=== PATIENT | female | born 1955 | race American Indian/Alaskan Native ===

== ENCOUNTER 2016-09-10 12:25 | Outpatient (CLI) | payer BC ==
[2016-09-10 12:46] LABS: Red Blood Count 4.63 M/mm3 (3.65-5.03); White Blood Count 7.7 K/mm3 (4.5-11.0)
[2016-09-10 12:47] LABS: Hematocrit 41.3 % (30.3-42.9); Hemoglobin 13.3 gm/dl (10.1-14.3); Mean Corpuscular HGB Conc 32 % (30-34); Mean Corpuscular Hemoglobin 29 pg (28-32); Mean Corpuscular Volume 89 fl (79-97); Platelet Count 351 K/mm3 (140-440); Red Cell Distribution Width 14.9 % (13.2-15.2)
[2016-09-10 13:23] LABS: Albumin 4.3 g/dL (3.9-5); Anion Gap 19 mmol/L; BUN/Creatinine Ratio 17.69; Blood Urea Nitrogen 23 mg/dL (7-17); Calcium 9.8 mg/dL (8.4-10.2); Carbon Dioxide 27 mmol/L (22-30); Chloride 100.4 mmol/L (98-107); Glucose 107 mg/dL (65-100); Phosphorous 3.7 mg/dL (2.5-4.5); Potassium 4.8 mmol/L (3.6-5.0); Sodium 142 mmol/L (137-145)
== END 2016-09-10 12:26 | disposition home or self-care (01) ==
LOC: LAB 12:25
PROVIDERS: ATTEND Internal Medicine
DX: C64.2 Malignant neoplasm of left kidney, except renal pelvis (principal); I10 Essential (primary) hypertension; R94.4 Abnormal results of kidney function studies; E55.9 Vitamin D deficiency, unspecified; E79.0 Hyperuricemia without signs of inflammatory arthritis and tophaceous disease
CPT/HCPCS: 36415; 80048; 82040; 82570; 84100; 84156; 85027

== ENCOUNTER 2016-09-16 09:59 | Outpatient (CLI) | payer BC ==
--- NOTE | 2016-09-16 12:40 | Magnetic Resonance Report ---
MRI ABDOMEN WITH AND WITHOUT CONTRAST MRI PELVIS WITH AND WITHOUT CONTRAST INDICATION: Malignant neoplasm of left kidney. COMPARISON: 08/31/2015 CT. FINDINGS: Multiplanar and multisequence MRI of the abdomen and pelvis performed utilizing 15 mL MultiHance intravenously. LUNG BASES again demonstrate normal heart size. Nonspecific distal esophageal wall thickening, not excluded for gastroesophageal reflux and/or hiatal hernia, amongst others. ABDOMEN: Left nephrectomy again noted with unremarkable surgical bed, occupied by small bowel. Few small right upper to mid renal cortical T2 hyperintensities/cysts measure up to 8 mm interpolar, axial series 4, image 30. No hydronephrosis on the right, though small nonobstructing right renal calculi or nephrocalcinosis on prior CT not well appreciated on MRI. Stable cholecystectomy. Liver, spleen, pancreas, adrenals, nonaneurysmal abdominal aorta and IVC remain within normal limits. No ascites or size significant adenopathy. Opacified bowel, marrow and muscle signal within normal limits. Normal appendix. PELVIS: Uterus again surgically absent. Small bilateral adnexal/ovarian follicular cysts again noted, measuring up to 1.4 cm on the left, axial image 25, series 4. Rectosigmoid stool. Unremarkable urinary bladder. No free fluid or size significant adenopathy. L4-L5 and L5-S1 disc degeneration with loss of signal noted. No focal suspicious abnormal enhancement. CONCLUSION: Left nephrectomy and cholecystectomy again noted with few other incidental findings, as above. Thank you for the opportunity to participate in this patient's care.
== END 2016-09-16 10:00 | disposition home or self-care (01) ==
LOC: MRI 09:59
PROVIDERS: ATTEND Urology
DX: C64.2 Malignant neoplasm of left kidney, except renal pelvis (principal); M51.36 Other intervertebral disc degeneration, lumbar region; Z90.5 Acquired absence of kidney; Z90.49 Acquired absence of other specified parts of digestive tract
CPT/HCPCS: 72197; 74183; A9577

== ENCOUNTER 2017-02-17 07:51 | Outpatient (CLI) | payer BC ==
--- NOTE | 2017-02-17 10:13 | Mammography Report ---
BILATERAL MAMMOGRAM: FINDINGS: The breast tissue is heterogeneously dense, which could obscure detection of small masses (approximately 50%-75% glandular). No mass, distortion, suspicious calcification, or skin change is seen. No significant change compared to prior exam in January 2015. CAD was utilized. IMPRESSION: Negative mammogram. There is no mammographic evidence of malignancy. RECOMMENDATION: Follow-up per ACS guidelines. BI-RADS CATEGORY: 1 = Negative ACR BI-RADS MAMMOGRAPHIC CODES: 0 = Needs additional imaging evaluation; 1 = Negative; 2 = Benign; 3 = Probably benign; 4 = Suspicious; 5 = Malignant; 6 = Known biopsy-proven malignancy COMMENT: 1. Dense breast tissue, i.e., adenosis, fibrocystic changes, etc., may obscure an underlying neoplasm. 2. Approximately 10% of cancers are not detected with mammography. 3. A negative mammography report should not delay biopsy if a clinically suspicious mass is present. COMMENT: Patient follow-up letters are generated in [employer].
== END 2017-02-17 07:52 | disposition home or self-care (01) ==
LOC: MAMMO 07:51
PROVIDERS: ATTEND Family Medicine
DX: Z12.31 Encounter for screening mammogram for malignant neoplasm of breast (principal)
CPT/HCPCS: 77067; G0202

== ENCOUNTER 2018-02-18 07:37 | Outpatient (CLI) | payer BC ==
--- NOTE | 2018-02-18 12:37 | Mammography Report ---
BILATERAL DIGITAL SCREENING MAMMOGRAM with CAD: 02/18/18 07:37:00 CLINICAL: Routine screening. COMPARISON:02/17/17 FINDINGS: The breasts are heterogeneously dense, which may obscure small masses. A right asymmetry with architectural distortion on the CC view requires additional imaging.No suspicious calcifications. The left breast is negative. IMPRESSION: Right asymmetry and architectural distortion requiring further workup. BI-RADS CATEGORY: 0 -- Additional Imaging Evaluation Required RECOMMENDATION: Recall for right lateralmedial and spot magnification CC views and right breast ultrasound if needed. ACR BI-RADS MAMMOGRAPHIC CODES: 0 = Needs additional imaging evaluation; 1 = Negative; 2 = Benign; 3 = Probably benign; 4 = Suspicious; 5 = Malignant; 6 = Known biopsy-proven malignancy COMMENT: 1. Dense breast tissue, i.e., adenosis, fibrocystic changes, etc., may obscure an underlying neoplasm. 2. Approximately 10% of cancers are not detected with mammography. 3. A negative mammography report should not delay biopsy if a clinically suspicious mass is present. COMMENT: Patient follow-up letters are generated via our [email or web address] application.
== END 2018-02-18 07:38 | disposition home or self-care (01) ==
LOC: MAMMO 07:37
PROVIDERS: ATTEND Family Medicine
DX: Z12.31 Encounter for screening mammogram for malignant neoplasm of breast (principal)
CPT/HCPCS: 77067

== ENCOUNTER 2018-04-30 16:18 | Outpatient (CLI) | payer BC ==
[2018-04-30 16:44] LABS: Basophils # (Auto) 0.1 K/mm3 (0.0-0.1); Basophils % (Auto) 0.9 % (0.0-1.8); Eosinophils # (Auto) 0.1 K/mm3 (0.0-0.4); Eosinophils % (Auto) 1.1 % (0.0-4.3); Hemoglobin 13.6 gm/dl (10.1-14.3); Lymphocytes # (Auto) 2.8 K/mm3 (1.2-5.4); Mean Corpuscular HGB Conc 33 % (30-34); Mean Corpuscular Hemoglobin 30 pg (28-32); Mean Corpuscular Volume 89 fl (79-97); Monocytes # (Auto) 0.7 K/mm3 (0.0-0.8); Monocytes % (Auto) 8.9 % (0.0-7.3); Platelet Count 376 K/mm3 (140-440); Red Cell Distribution Width 15.1 % (13.2-15.2)
[2018-04-30 17:08] LABS: Creatinine,Urine 47.1 mg/dL (0.1-20.0); Protein/Creatinine Ratio,Urine 0.11
[2018-04-30 17:13] LABS: Alanine Aminotransferase 16 units/L (7-56); BUN/Creatinine Ratio 13; Blood Urea Nitrogen 14 mg/dL (7-17); Calcium 9.6 mg/dL (8.4-10.2); Hemolysis Index 5
== END 2018-04-30 16:19 | disposition home or self-care (01) ==
LOC: LAB 16:18
PROVIDERS: ATTEND Internal Medicine
DX: R94.4 Abnormal results of kidney function studies (principal)
CPT/HCPCS: 36415; 80053; 82570; 84156; 85025

== ENCOUNTER 2018-12-09 09:26 | Outpatient (CLI) | payer BC ==
[2018-12-09 09:52] LABS: Hemoglobin 13.2 gm/dl (10.1-14.3); Mean Corpuscular HGB Conc 34 % (30-34); Mean Corpuscular Volume 89 fl (79-97); Platelet Count 333 K/mm3 (140-440); Red Blood Count 4.38 M/mm3 (3.65-5.03); Red Cell Distribution Width 15.3 % (13.2-15.2)
[2018-12-09 10:09] LABS: Alanine Aminotransferase 13 units/L (7-56); BUN/Creatinine Ratio 23; Blood Urea Nitrogen 23 mg/dL (7-17); Calcium 9.5 mg/dL (8.4-10.2); Hemolysis Index 8
[2018-12-09 13:22] LABS: Creatinine,Urine 23.3 mg/dL (0.1-20.0)
[2018-12-09 13:29] LABS: Protein/Creatinine Ratio,Urine 0.17
== END 2018-12-09 09:27 | disposition home or self-care (01) ==
LOC: LAB 09:26
PROVIDERS: ATTEND Internal Medicine
DX: R94.4 Abnormal results of kidney function studies (principal); E55.9 Vitamin D deficiency, unspecified; E79.0 Hyperuricemia without signs of inflammatory arthritis and tophaceous disease; E87.5 Hyperkalemia
CPT/HCPCS: 36415; 80053; 82570; 84156; 85027

== ENCOUNTER 2019-05-28 14:41 | Outpatient (CLI) | payer BC ==
[2019-05-28 15:05] LABS: Basophils # (Auto) 0.1 K/mm3 (0.0-0.1); Basophils % (Auto) 0.7 % (0.0-1.8); Eosinophils # (Auto) 0.1 K/mm3 (0.0-0.4); Eosinophils % (Auto) 0.9 % (0.0-4.3); Hemoglobin 13.1 gm/dl (10.1-14.3); Lymphocytes # (Auto) 2.6 K/mm3 (1.2-5.4); Mean Corpuscular HGB Conc 33 % (30-34); Mean Corpuscular Volume 90 fl (79-97); Monocytes # (Auto) 0.8 K/mm3 (0.0-0.8); Monocytes % (Auto) 9.7 % (0.0-7.3); Platelet Count 313 K/mm3 (140-440); Red Blood Count 4.42 M/mm3 (3.65-5.03); Red Cell Distribution Width 14.9 % (13.2-15.2)
[2019-05-28 15:32] LABS: Alanine Aminotransferase 14 units/L (7-56); Albumin 4.1 g/dL (3.9-5); BUN/Creatinine Ratio 14; Blood Urea Nitrogen 15 mg/dL (7-17); Calcium 9.4 mg/dL (8.4-10.2); Hemolysis Index 1
[2019-05-28 15:49] LABS: Creatinine,Urine 39.2 mg/dL (0.1-20.0)
== END 2019-05-28 14:42 | disposition home or self-care (01) ==
LOC: LAB 14:41
PROVIDERS: ATTEND Internal Medicine
DX: R94.4 Abnormal results of kidney function studies (principal)
CPT/HCPCS: 36415; 80053; 82570; 84156; 85025

== ENCOUNTER 2019-12-08 12:23 | Outpatient (CLI) | payer BC ==
[2019-12-08 12:43] LABS: Hemoglobin 13.9 gm/dl (10.1-14.3)
[2019-12-08 12:46] LABS: Hematocrit 41.8 % (30.3-42.9); Mean Corpuscular HGB Conc 33 % (30-34); Mean Corpuscular Volume 89 fl (79-97); Platelet Count 373 K/mm3 (140-440); Red Cell Distribution Width 15.2 % (13.2-15.2)
[2019-12-08 13:05] LABS: Alanine Aminotransferase 20 units/L (7-56); Albumin 4.2 g/dL (3.9-5); BUN/Creatinine Ratio 16; Blood Urea Nitrogen 16 mg/dL (7-17); Calcium 9.6 mg/dL (8.4-10.2); Hemolysis Index 10
[2019-12-08 14:27] LABS: Creatinine,Urine 23.1 mg/dL (0.1-20.0)
[2019-12-08 14:48] LABS: Protein/Creatinine Ratio,Urine 0.17
== END 2019-12-08 12:24 | disposition home or self-care (01) ==
LOC: LAB 12:23
PROVIDERS: ATTEND Internal Medicine
DX: C64.2 Malignant neoplasm of left kidney, except renal pelvis (principal); I10 Essential (primary) hypertension; E87.5 Hyperkalemia; R94.4 Abnormal results of kidney function studies; E55.9 Vitamin D deficiency, unspecified; E79.0 Hyperuricemia without signs of inflammatory arthritis and tophaceous disease
CPT/HCPCS: 36415; 80053; 82570; 84156; 85027

== ENCOUNTER 2020-05-19 11:09 | Outpatient (CLI) | payer BC ==
--- NOTE | 2020-05-19 12:51 | Mammography Report ---
DIGITAL SCREENING MAMMOGRAM WITH CAD, 05/19/2020 INDICATION: Routine screening mammography. SCREENING MAMMOGRAM TECHNIQUE: Digital bilateral 2D mammography was obtained in the craniocaudal and mediolateral obliq ue projections. This examination was interpreted with the benefit of Computer-Aided Detection analysi s. COMPARISON: 02/18/2018 FINDINGS: Breast Density: The breasts are heterogeneously dense, which may obscure small masses. There is no evidence of dominant mass, suspicious calcifications or architectural distortion in eithe r breast. IMPRESSION: Follow up recommendation: Routine yearly BI-RADS Category 1: Negative. A "normal" or negative report should not discourage follow up or biopsy of a clinically significant f inding. A written summary of these findings will be mailed to the patient. The patient will be entered into a mammography reporting system which will generate a reminder letter for the patient's next appointmen t at the appropriate interval. The [employer] recommends yearly mammograms starting at age 40 and continuing as l hubert as a woman is in good health. Breast MRI is recommended for women with an approximate 20-25% or greater lifetime risk of breast cancer, including women with a strong family history of breast or ova lisbet cancer or who have been treated for Hodgkin's disease. Signer Name: Leonel Cat MD Signed: 05/19/2020 12:47 PM Workstation Name: [id number]
== END 2020-05-19 11:10 | disposition home or self-care (01) ==
LOC: MAMMO 11:09
PROVIDERS: ATTEND Family Medicine
DX: Z12.31 Encounter for screening mammogram for malignant neoplasm of breast (principal)
CPT/HCPCS: 77067

== ENCOUNTER 2020-06-01 10:45 | Outpatient (CLI) | payer BC ==
[2020-06-01 11:11] LABS: Hematocrit 39.2 % (30.3-42.9); Hemoglobin 12.9 gm/dl (10.1-14.3); Mean Corpuscular HGB Conc 33 % (30-34); Mean Corpuscular Volume 89 fl (79-97); Platelet Count 315 K/mm3 (140-440)
[2020-06-01 11:33] LABS: Alanine Aminotransferase 13 units/L (7-56); BUN/Creatinine Ratio 15; Blood Urea Nitrogen 16 mg/dL (7-17); Calcium 9.5 mg/dL (8.4-10.2); Hemolysis Index 11
[2020-06-01 11:44] LABS: Creatinine,Urine 90.3 mg/dL (0.1-20.0); Protein/Creatinine Ratio,Urine 0.08
== END 2020-06-01 10:46 | disposition home or self-care (01) ==
LOC: LAB 10:45
PROVIDERS: ATTEND Internal Medicine
DX: R94.4 Abnormal results of kidney function studies (principal)
CPT/HCPCS: 36415; 80053; 82570; 84156; 85027

== ENCOUNTER 2021-05-17 08:33 | Outpatient (CLI) | payer BC ==
[2021-05-17 08:52] LABS: Hematocrit 38.4 % (30.3-42.9); Hemoglobin 13.1 gm/dl (10.1-14.3); Mean Corpuscular HGB Conc 34 % (30-34); Mean Corpuscular Volume 88 fl (79-97); Platelet Count 319 K/mm3 (140-440); Red Blood Count 4.37 M/mm3 (3.65-5.03)
[2021-05-17 09:15] LABS: Alanine Aminotransferase 13 units/L (7-56); Albumin 3.7 g/dL (3.9-5); BUN/Creatinine Ratio 16; Blood Urea Nitrogen 16 mg/dL (7-17); Calcium 9.1 mg/dL (8.4-10.2); Hemolysis Index 12
[2021-05-17 12:48] LABS: Creatinine,Urine 34.6 mg/dL (0.1-20.0)
[2021-05-17 12:49] LABS: Protein/Creatinine Ratio,Urine 0.12
== END 2021-05-17 08:34 | disposition home or self-care (01) ==
LOC: LAB 08:33
PROVIDERS: ATTEND Internal Medicine
DX: R94.4 Abnormal results of kidney function studies (principal)
CPT/HCPCS: 36415; 80053; 82570; 84156; 85027

== ENCOUNTER 2021-06-20 08:42 | Outpatient (CLI) | payer BC ==
--- NOTE | 2021-06-20 11:03 | Mammography Report ---
DIGITAL SCREENING MAMMOGRAM WITH CAD, 06/20/2021 CLINICAL INFORMATION / INDICATION: Routine screening mammography. TECHNIQUE: Digital bilateral 2D mammography was obtained in the craniocaudal and mediolateral obliqu e projections. This examination was interpreted with the benefit of Computer-Aided Detection analysis . COMPARISON: 05/19/2020, 02/18/2018, 02/17/2017 FINDINGS: Breast Density: The breasts are heterogeneously dense, which may obscure small masses. No dominant mass, suspicious calcifications, or architectural distortion in either breast. IMPRESSION: No mammographic evidence of malignancy. Follow up recommendation: Routine yearly BI-RADS Category 1: Negative. A "normal" or negative report should not discourage follow up or biopsy of a clinically significant f inding. A written summary of these findings will be mailed to the patient. The patient will be entered into a mammography reporting system which will generate a reminder letter for the patient's next appointmen t at the appropriate interval. The [employer] recommends yearly mammograms starting at age 40 and continuing as l hubert as a woman is in good health. Breast MRI is recommended for women with an approximate 20-25% or greater lifetime risk of breast cancer, including women with a strong family history of breast or ova lisbet cancer or who have been treated for Hodgkin's disease. Signer Name: Yuliana Cabrera MD Signed: 06/20/2021 10:58 AM Workstation Name: [id number]
== END 2021-06-20 08:43 | disposition home or self-care (01) ==
LOC: MAMMO 08:42
PROVIDERS: ATTEND Family Medicine
DX: Z12.31 Encounter for screening mammogram for malignant neoplasm of breast (principal)
CPT/HCPCS: 77067

== ENCOUNTER 2021-11-27 10:24 | Outpatient (CLI) | payer BC ==
[2021-11-27 11:07] LABS: Hematocrit 40.6 % (30.3-42.9); Hemoglobin 13.5 gm/dl (10.1-14.3); Mean Corpuscular HGB Conc 33 % (30-34); Mean Corpuscular Volume 88 fl (79-97); Platelet Count 370 K/mm3 (140-440); Red Blood Count 4.61 M/mm3 (3.65-5.03)
[2021-11-27 11:45] LABS: Alanine Aminotransferase 13 units/L (7-56); Albumin 4.1 g/dL (3.9-5); BUN/Creatinine Ratio 15; Blood Urea Nitrogen 16 mg/dL (7-17); Hemolysis Index 20
[2021-11-27 14:20] LABS: Creatinine,Urine 20.5 mg/dL (0.1-20.0)
== END 2021-11-27 10:25 | disposition home or self-care (01) ==
LOC: LAB 10:24
PROVIDERS: ATTEND Internal Medicine
DX: C64.2 Malignant neoplasm of left kidney, except renal pelvis (principal); R94.4 Abnormal results of kidney function studies; E87.5 Hyperkalemia; I10 Essential (primary) hypertension; E79.0 Hyperuricemia without signs of inflammatory arthritis and tophaceous disease; E55.9 Vitamin D deficiency, unspecified
CPT/HCPCS: 36415; 80053; 82570; 84156; 85027